=== PATIENT | female | born 1940 | race Caucasian/White ===

== ENCOUNTER 2017-11-21 16:26 | Inpatient (IN) ==
[2017-11-21 17:53] LABS: Basophils % 0.3 % (0.0-0.8); Eosinophils % 0.2 % (0.00-10.9); Hematocrit 31.4 VOL% (35.7-47.0); Hemoglobin 10.5 GM/DL (12.0-16.0); Immature Granulocytes % 0.5 %; Immature Granulocytes Absolute 0.05 #; Lymphocytes # 1.8 10*3/uL (1.4-4.0); Lymphocytes % 17.5 % (21.3-54.2); Mean Corpuscular HGB Conc 33.4 GM/DL (32-36); Mean Corpuscular Hemoglobin 32 PG (27-34); Mean Corpuscular Volume 94.9 FL (87-102); Mean Platelet Volume 13.1 FL (9.6-12.0); Monocytes # 0.7 10*3/uL (0.11-0.8); Monocytes % 6.5 % (1.7-12.7); NRBC # 0.06 10*3/uL; Neutrophils # 7.9 10*3/uL (1.4-7.4); Platelet Count 271 T/CUMM (130-400); Red Blood Count 3.31 MC/CUMM (3.8-5.5); Red Cell Distribution Width 13.7 % (9.3-17.3); White Blood Count 10.5 T/CUMM (4-12)
[2017-11-21 18:09] LABS: Alanine Aminotransferase 166 U/L (13-56); Albumin 2.5 G/DL (3.4-5.0); Alkaline Phosphatase 119 U/L (45-117); Amylase 25 U/L (25-115); Aspartate Amino Transferase 184 U/L (0-37); Blood Urea Nitrogen 62 MG/DL (7-18); Calcium 7.9 MG/DL (8.5-10.1); Glucose 216 MG/DL (74-106); Osmolality,Calculated 271.8 MOS/KG (273-304); Potassium 4.7 MMOL/L (3.5-5.1); Sodium 123 MMOL/L (136-145); Total Protein 6.8 G/DL (6.4-8.3)
[2017-11-21 18:22] LABS: Lactic Acid 2.2 MMOL/L (0.4-2.0)
[2017-11-21] MEDS ORDERED: SODIUM CHLORIDE 0.9% 2,000 ML IV STA (18:35)
[2017-11-21] MEDS ORDERED: ONDANSETRON 4 MG/2 ML VIAL ONE (19:10)
[2017-11-21] MEDS ORDERED: ONDANSETRON 4 MG/2 ML VIAL IV STA (19:11)
[2017-11-21 20:58] LABS: Amorphous Crystals,Urine Moderate /HPF (Few); Apearance,Urine Slightly Hazy (Clear); Bacteria,Urine Moderate /HPF (Few); Bilirubin,Urine Negative (Negative); Blood, Urine Small mg/dL (Negative); Glucose,Urine (UA) >=500 mg/dL (Negative); Ketones,Urine 5 mg/dL (Negative); Mucus,Urine Occasional /LPF (Occasional); Nitrite,Urine Negative (Negative); Protein,Urine >=500 MG/DL; RBC,Urine 2 /HPF (0-4); Squamous Epithelial Cell,Urine Occasional /HPF (0-10); Urine Color Yellow (Yellow); Urine Specific Gravity 1.011 (1.001-1.035); Urine Urobilinogen < 2.0 EU/DL (0.2-1.0); WBC,Urine 2 /HPF (0-6)
[2017-11-21] MEDS ORDERED: ALBUTEROL 2.5 MG/3 ML NEB RESP TX PRN (21:03)
[2017-11-21] MEDS ORDERED: ALBUTEROL/IPRATROPIUM 3 ML NEB RESP TX PRN (21:03)
[2017-11-21] MEDS ORDERED: DEXTROSE 50% 25 GM/50 ML VIAL IV PRN (21:03)
[2017-11-21] MEDS ORDERED: GLUCAGON 1 MG VIAL IM PRN (21:03)
[2017-11-21] MEDS: ASPIRIN EC 81 MG TABLET PO SCH (21:39)
[2017-11-21] MEDS: INSULIN GLARGINE 100 UNIT/ML SUBCUT SCH (21:40)
[2017-11-21] MEDS: METOPROLOL TARTRATE 25 MG TABLET PO SCH (21:40)
[2017-11-21] MEDS: ENOXAPARIN 60 MG/0.6 ML SYRINGE SUBCUT SCH (21:41)
[2017-11-21] MEDS: SODIUM CHLORIDE 0.9% 1,000 ML IV SCH (21:43)
[2017-11-21] MEDS: TIMOLOL 0.5% OPH SOLN 5 ML BOTTLE LEFT EYE SCH (21:44)
[2017-11-21] MEDS: LATANOPROST 0.005% OPH SOLN 2.5 ML BOTTLE LEFT EYE SCH (21:44)
[2017-11-21] MEDS: INSULIN LISPRO 100 UNIT/ML SUBCUT SCH (21:45)
[2017-11-21] MEDS: BRIMONIDINE 0.2% OPH SOLN 5 ML BOTTLE LEFT EYE SCH (21:45)
[2017-11-21] MEDS ORDERED: NITROGLYCERIN SL 0.4 MG TABLET SL PRN (21:46)
[2017-11-21 22:55] LABS: INR 1.3; PT Patient Result 13.2 SECS
[2017-11-22] MEDS: ONDANSETRON 4 MG/2 ML VIAL IV PRN (03:30)
[2017-11-22 05:22] LABS: Basophils % 0.3 % (0.0-0.8); Eosinophils % 0.1 % (0.00-10.9); Hematocrit 30.6 VOL% (35.7-47.0); Hemoglobin 9.9 GM/DL (12.0-16.0); Immature Granulocytes % 0.5 %; Immature Granulocytes Absolute 0.05 #; Lymphocytes # 1.5 10*3/uL (1.4-4.0); Lymphocytes % 15.6 % (21.3-54.2); Mean Corpuscular HGB Conc 32.4 GM/DL (32-36); Mean Corpuscular Hemoglobin 31 PG (27-34); Mean Corpuscular Volume 95.3 FL (87-102); Mean Platelet Volume 13.4 FL (9.6-12.0); Monocytes # 0.7 10*3/uL (0.11-0.8); Monocytes % 7.2 % (1.7-12.7); NRBC # 0.05 10*3/uL; Neutrophils # 7.3 10*3/uL (1.4-7.4); Neutrophils % 76.3 % (38.7-73.9); Platelet Count 230 T/CUMM (130-400); Red Blood Count 3.21 MC/CUMM (3.8-5.5); Red Cell Distribution Width 13.6 % (9.3-17.3); White Blood Count 9.6 T/CUMM (4-12)
[2017-11-22 05:38] LABS: Albumin 2.3 G/DL (3.4-5.0); Bilirubin,Total 0.8 MG/DL (0.2-1.0); Calcium 7.7 MG/DL (8.5-10.1); Osmolality,Calculated 273.4 MOS/KG (273-304); Potassium 4.7 MMOL/L (3.5-5.1); Risk Ratio 3.62; Thyroid Stimulating Hormone 1.6 uIU/ml (0.358-3.74); Total Protein 6.1 G/DL (6.4-8.3)
[2017-11-22] MEDS: PROMETHAZINE 25 MG/1 ML VIAL IM PRN (07:17)
[2017-11-22] MEDS: METOPROLOL TARTRATE 25 MG TABLET PO SCH ×2 (08:06→20:21)
[2017-11-22] MEDS: BRIMONIDINE 0.2% OPH SOLN 5 ML BOTTLE LEFT EYE SCH ×2 (08:07→20:23)
[2017-11-22] MEDS: TIMOLOL 0.5% OPH SOLN 5 ML BOTTLE LEFT EYE SCH ×2 (08:07→20:23)
[2017-11-22] MEDS: INSULIN LISPRO 100 UNIT/ML SUBCUT SCH ×4 (08:14→20:20)
[2017-11-22] MEDS: SODIUM BICARB INJ 150 MEQ in STERILE WATER INJ 850 ML IV SCH ×2 (10:01→20:20)
[2017-11-22 11:20] LABS: Hepatitis A Ab IgM Quant 0.28 Index; Hepatitis A Ab IgM Result Negative (Negative); Hepatitis B Core IgM Quant 0.35 Index; Hepatitis B Core IgM Result Negative (Negative); Hepatitis B Surface Ag Quant 0.71 Index; Hepatitis B Surface Ag Result Negative (Negative); Hepatitis C Virus Ab Quant < 0.02 Index; Hepatitis C Virus Ab Result Negative (Negative)
[2017-11-22 11:33] LABS: Lactic Acid 3.4 MMOL/L (0.4-2.0)
[2017-11-22] MEDS: DIGOXIN 0.125 MG TABLET PO SCH (13:32)
[2017-11-22] MEDS: ENOXAPARIN 60 MG/0.6 ML SYRINGE SUBCUT SCH (20:20)
[2017-11-22] MEDS: ASPIRIN EC 81 MG TABLET PO SCH (20:21)
[2017-11-22] MEDS: INSULIN GLARGINE 100 UNIT/ML SUBCUT SCH (20:21)
[2017-11-22] MEDS: LATANOPROST 0.005% OPH SOLN 2.5 ML BOTTLE LEFT EYE SCH (20:24)
[2017-11-22 22:08] LABS: Collection Time,Urine 12 HOURS; Total Protein 12 Hr Ur Result 546 MG/12HR (0-75)
[2017-11-23 04:46] LABS: Basophils % 0.3 % (0.0-0.8); Eosinophils # 0.1 10*3/uL (0.0-0.87); Eosinophils % 0.7 % (0.00-10.9); Hematocrit 29.4 VOL% (35.7-47.0); Hemoglobin 9.9 GM/DL (12.0-16.0); Immature Granulocytes % 0.5 %; Immature Granulocytes Absolute 0.05 #; Lymphocytes # 2.3 10*3/uL (1.4-4.0); Lymphocytes % 21.2 % (21.3-54.2); Mean Corpuscular HGB Conc 33.7 GM/DL (32-36); Mean Corpuscular Hemoglobin 32 PG (27-34); Mean Corpuscular Volume 93.9 FL (87-102); Monocytes # 1.1 10*3/uL (0.11-0.8); Monocytes % 10.4 % (1.7-12.7); NRBC # 0.12 10*3/uL; Neutrophils # 7.1 10*3/uL (1.4-7.4); Neutrophils % 66.9 % (38.7-73.9); Platelet Count 254 T/CUMM (130-400); Red Blood Count 3.13 MC/CUMM (3.8-5.5); Red Cell Distribution Width 13.9 % (9.3-17.3); White Blood Count 10.7 T/CUMM (4-12)
[2017-11-23 05:12] LABS: Calcium 7.3 MG/DL (8.5-10.1); Osmolality,Calculated 274.1 MOS/KG (273-304); Potassium 3.9 MMOL/L (3.5-5.1)
[2017-11-23] MEDS: SODIUM BICARB INJ 150 MEQ in STERILE WATER INJ 850 ML IV SCH ×2 (06:27→14:23)
[2017-11-23] MEDS ORDERED: METOPROLOL TARTRATE 50 MG TABLET PO SCH (08:00)
[2017-11-23] MEDS ORDERED: METOPROLOL TARTRATE 50 MG TABLET ONE (08:02)
[2017-11-23] MEDS: cefTRIAXone 1,000 MG in SYRINGE 1 EACH IV SCH (08:03)
[2017-11-23] MEDS: BRIMONIDINE 0.2% OPH SOLN 5 ML BOTTLE LEFT EYE SCH ×2 (08:04→20:23)
[2017-11-23] MEDS: INSULIN LISPRO 100 UNIT/ML SUBCUT SCH ×4 (08:04→20:22)
[2017-11-23] MEDS: TIMOLOL 0.5% OPH SOLN 5 ML BOTTLE LEFT EYE SCH ×2 (08:04→20:23)
[2017-11-23] MEDS: DIGOXIN 0.125 MG TABLET PO SCH (13:11)
[2017-11-23] MEDS: ONDANSETRON 4 MG/2 ML VIAL IV PRN (14:24)
[2017-11-23] MEDS: ENOXAPARIN 60 MG/0.6 ML SYRINGE SUBCUT SCH (20:22)
[2017-11-23] MEDS: INSULIN GLARGINE 100 UNIT/ML SUBCUT SCH (20:22)
[2017-11-23] MEDS: ASPIRIN EC 81 MG TABLET PO SCH (20:22)
[2017-11-23] MEDS: LATANOPROST 0.005% OPH SOLN 2.5 ML BOTTLE LEFT EYE SCH (20:23)
[2017-11-23] MEDS: SODIUM CHLORIDE 0.9% 1,000 ML IV SCH (20:55)
[2017-11-24] MEDS: SODIUM BICARB INJ 150 MEQ in STERILE WATER INJ 850 ML IV SCH (02:35)
[2017-11-24 06:04] LABS: Lactic Acid 2.2 MMOL/L (0.4-2.0)
[2017-11-24 06:12] LABS: Calcium 7.5 MG/DL (8.5-10.1); Osmolality,Calculated 265.5 MOS/KG (273-304); Potassium 3.4 MMOL/L (3.5-5.1)
[2017-11-24 07:04] LABS: Albumin 2.1 G/DL (3.4-5.0); Bilirubin,Total 0.4 MG/DL (0.2-1.0); Calcium 7.5 MG/DL (8.5-10.1); Osmolality,Calculated 265.5 MOS/KG (273-304); Potassium 3.6 MMOL/L (3.5-5.1); Total Protein 5.8 G/DL (6.4-8.3)
[2017-11-24] MEDS: INSULIN LISPRO 100 UNIT/ML SUBCUT SCH ×4 (07:33→20:12)
[2017-11-24] MEDS ORDERED: SODIUM BICARB INJ 150 MEQ in DEXTROSE 5% 850 ML IV SCH (08:00)
[2017-11-24] MEDS: METOPROLOL TARTRATE 50 MG TABLET PO SCH ×2 (09:05→20:17)
[2017-11-24] MEDS: TIMOLOL 0.5% OPH SOLN 5 ML BOTTLE LEFT EYE SCH ×2 (09:07→20:10)
[2017-11-24] MEDS: cefTRIAXone 1,000 MG in SYRINGE 1 EACH IV SCH (09:08)
[2017-11-24] MEDS: BRIMONIDINE 0.2% OPH SOLN 5 ML BOTTLE LEFT EYE SCH ×2 (09:08→20:10)
[2017-11-24] MEDS ORDERED: SODIUM CHLOR 0.9% KCL 20 MEQ 20 MEQ/1,000 ML BAG IV SCH (10:30)
[2017-11-24] MEDS: DEXT 5% NACL 0.9% KCL 20 MEQ 20 MEQ/1,000 ML BAG IV SCH (11:13)
[2017-11-24 12:02] LABS: INR 1.2; PT Patient Result 12.7 SECS
[2017-11-24] MEDS: DIGOXIN 0.125 MG TABLET PO SCH (12:19)
[2017-11-24] MEDS: ONDANSETRON 4 MG/2 ML VIAL IV PRN (13:29)
[2017-11-24 14:07] LABS: ABG Base Excess -0.9 MMOL/L (-2.5-2.5); ABG HCO3 22.2 MMOL/L (20-26); ABG Oxygen Saturation 98.5 % (95-100); ABG PCO2 31.2 MM HG (35-48); ABG PO2 142.5 MM HG (80-95); ABG TCO2 23.2 MMOL/L (23-27)
[2017-11-24 14:13] LABS: Basophils % 0.3 % (0.0-0.8); Eosinophils # 0.1 10*3/uL (0.0-0.87); Eosinophils % 1.1 % (0.00-10.9); Hematocrit 30.9 VOL% (35.7-47.0); Hemoglobin 10.2 GM/DL (12.0-16.0); Immature Granulocytes % 0.9 %; Lymphocytes # 2.3 10*3/uL (1.4-4.0); Lymphocytes % 20.8 % (21.3-54.2); Mean Corpuscular Hemoglobin 32 PG (27-34); Mean Corpuscular Volume 96.3 FL (87-102); Mean Platelet Volume 12.8 FL (9.6-12.0); Monocytes # 1.1 10*3/uL (0.11-0.8); Monocytes % 9.9 % (1.7-12.7); NRBC # 0.18 10*3/uL; Neutrophils # 7.6 10*3/uL (1.4-7.4); Platelet Count 239 T/CUMM (130-400); Red Blood Count 3.21 MC/CUMM (3.8-5.5); Red Cell Distribution Width 14.8 % (9.3-17.3); White Blood Count 11.3 T/CUMM (4-12)
[2017-11-24 14:37] LABS: Calcium 7.2 MG/DL (8.5-10.1); Osmolality,Calculated 268.6 MOS/KG (273-304)
[2017-11-24] MEDS: ENOXAPARIN 60 MG/0.6 ML SYRINGE SUBCUT SCH (20:11)
[2017-11-24] MEDS: LATANOPROST 0.005% OPH SOLN 2.5 ML BOTTLE LEFT EYE SCH (20:11)
[2017-11-24] MEDS: ASPIRIN EC 81 MG TABLET PO SCH (20:11)
[2017-11-25] MEDS: DEXT 5% NACL 0.9% KCL 20 MEQ 20 MEQ/1,000 ML BAG IV SCH (02:14)
[2017-11-25] MEDS: ONDANSETRON 4 MG/2 ML VIAL IV PRN ×5 (05:04→23:03)
[2017-11-25 05:20] LABS: Basophils % 0.3 % (0.0-0.8); Eosinophils # 0.1 10*3/uL (0.0-0.87); Eosinophils % 1.2 % (0.00-10.9); Hematocrit 30.8 VOL% (35.7-47.0); Hemoglobin 10.1 GM/DL (12.0-16.0); Immature Granulocytes % 0.7 %; Immature Granulocytes Absolute 0.07 #; Lymphocytes # 2.4 10*3/uL (1.4-4.0); Lymphocytes % 22.3 % (21.3-54.2); Mean Corpuscular HGB Conc 32.8 GM/DL (32-36); Mean Corpuscular Hemoglobin 32 PG (27-34); Mean Platelet Volume 12.9 FL (9.6-12.0); Monocytes # 1.1 10*3/uL (0.11-0.8); Monocytes % 10.6 % (1.7-12.7); NRBC # 0.22 10*3/uL; Neutrophils # 6.9 10*3/uL (1.4-7.4); Neutrophils % 64.9 % (38.7-73.9); Platelet Count 224 T/CUMM (130-400); Red Blood Count 3.21 MC/CUMM (3.8-5.5); Red Cell Distribution Width 14.8 % (9.3-17.3); White Blood Count 10.6 T/CUMM (4-12)
[2017-11-25 05:36] LABS: Calcium 7.4 MG/DL (8.5-10.1); Osmolality,Calculated 265.5 MOS/KG (273-304); Potassium 4.1 MMOL/L (3.5-5.1)
[2017-11-25] MEDS: INSULIN LISPRO 100 UNIT/ML SUBCUT SCH ×4 (08:00→20:07)
[2017-11-25] MEDS: BRIMONIDINE 0.2% OPH SOLN 5 ML BOTTLE LEFT EYE SCH ×2 (09:26→20:07)
[2017-11-25] MEDS: METOPROLOL TARTRATE 25 MG TABLET PO SCH ×2 (09:26→20:08)
[2017-11-25] MEDS: cefTRIAXone 1,000 MG in SYRINGE 1 EACH IV SCH (09:27)
[2017-11-25] MEDS: TIMOLOL 0.5% OPH SOLN 5 ML BOTTLE LEFT EYE SCH ×2 (09:29→20:08)
[2017-11-25 09:39] LABS: Lactic Acid 3.9 MMOL/L (0.4-2.0)
[2017-11-25 11:00] LABS: Albumin (UPER) 329.1 MG/DL; Albumin (UPER) Rel% 75.3 %; Alpha 1 (UPER) Rel% 4.8 %; Alpha 2 (UPER) 22.7 MG/DL; Alpha 2 (UPER) Rel % 5.2 %; Beta (UPER) 37.2 MG/DL; Beta (UPER) Rel % 8.5 %; Gamma (UPER) 27.1 MG/DL; Gamma (UPER) Rel % 6.2 %
[2017-11-25] MEDS: POTASSIUM CHLORIDE INJ 10 MEQ in DEXTROSE 5% NACL 0.9% 1,000 ML IV SCH (14:16)
[2017-11-25] MEDS: DIGOXIN 0.125 MG TABLET PO SCH (14:16)
[2017-11-25] MEDS ORDERED: DIGOXIN 0.125 MG TABLET PO ONE (14:28)
[2017-11-25] MEDS: ENOXAPARIN 60 MG/0.6 ML SYRINGE SUBCUT SCH (20:07)
[2017-11-25] MEDS: ASPIRIN EC 81 MG TABLET PO SCH (20:08)
[2017-11-25] MEDS: LATANOPROST 0.005% OPH SOLN 2.5 ML BOTTLE LEFT EYE SCH (20:08)
[2017-11-26] MEDS: ONDANSETRON 4 MG/2 ML VIAL IV PRN ×2 (02:52→08:13)
[2017-11-26] MEDS: PROMETHAZINE 25 MG/1 ML VIAL IM PRN (03:35)
[2017-11-26] MEDS ORDERED: DOBUTamine 500 MG/250 ML PREMIX IV ONE (06:57)
[2017-11-26] MEDS: DOBUTamine 500 MG/250 ML PREMIX IV PRN ×2 (06:57→14:30)
[2017-11-26] MEDS ORDERED: CALCIUM CHLORIDE 1,000 MG/10 ML SYRINGE IV ONE ×2 (07:00→08:58)
[2017-11-26] MEDS ORDERED: SODIUM CHLORIDE 0.9% 1,000 ML IV PRN (07:12)
[2017-11-26 07:26] LABS: Basophils % 0.2 % (0.0-0.8); Eosinophils % 0.1 % (0.00-10.9); Hematocrit 31.2 VOL% (35.7-47.0); Immature Granulocytes % 0.8 %; Immature Granulocytes Absolute 0.09 #; Lymphocytes # 1.5 10*3/uL (1.4-4.0); Lymphocytes % 13.6 % (21.3-54.2); Mean Corpuscular HGB Conc 32.1 GM/DL (32-36); Mean Corpuscular Hemoglobin 32 PG (27-34); Mean Corpuscular Volume 99.4 FL (87-102); Mean Platelet Volume 12.6 FL (9.6-12.0); NRBC # 0.32 10*3/uL; Neutrophils # 8.5 10*3/uL (1.4-7.4); Neutrophils % 76.3 % (38.7-73.9); Platelet Count 226 T/CUMM (130-400); Red Blood Count 3.14 MC/CUMM (3.8-5.5); Red Cell Distribution Width 15.4 % (9.3-17.3); White Blood Count 11.2 T/CUMM (4-12)
[2017-11-26 07:29] LABS: Calcium 8.9 MG/DL (8.5-10.1); Osmolality,Calculated 275.4 MOS/KG (273-304); Potassium 5.3 MMOL/L (3.5-5.1)
[2017-11-26 07:58] LABS: Bilirubin,Direct 0.3 MG/DL (0.0-0.20); Bilirubin,Indirect 0.3 MG/DL (0.0-1.0); Bilirubin,Total 0.6 MG/DL (0.2-1.0); Total Protein 5.4 G/DL (6.4-8.3)
[2017-11-26 08:02] LABS: Lactic Acid 6.8 MMOL/L (0.4-2.0)
[2017-11-26 08:16] LABS: Risk Ratio 3.91; VLDL CHOLESTEROL 18.6 MG/DL
[2017-11-26] MEDS: METOPROLOL TARTRATE 25 MG TABLET PO SCH (09:01)
[2017-11-26] MEDS: cefTRIAXone 1,000 MG in SYRINGE 1 EACH IV SCH (09:02)
[2017-11-26] MEDS: TIMOLOL 0.5% OPH SOLN 5 ML BOTTLE LEFT EYE SCH ×2 (09:20→20:52)
[2017-11-26] MEDS: INSULIN LISPRO 100 UNIT/ML SUBCUT SCH ×4 (10:35→20:51)
[2017-11-26] MEDS: POTASSIUM CHLORIDE INJ 10 MEQ in DEXTROSE 5% NACL 0.9% 1,000 ML IV SCH (10:40)
[2017-11-26] MEDS ORDERED: PROMETHAZINE 25 MG/1 ML VIAL IV PRN (11:34)
[2017-11-26] MEDS: SODIUM BICARB INJ 100 MEQ in DEXTROSE 5% NACL 0.45% 900 ML IV SCH ×2 (11:51→23:55)
[2017-11-26] MEDS: BRIMONIDINE 0.2% OPH SOLN 5 ML BOTTLE LEFT EYE SCH ×2 (11:56→20:51)
[2017-11-26] MEDS ORDERED: PROPOFOL 1,000 MG/100 ML BOTTLE IV ONE ×2 (12:13→23:51)
[2017-11-26] MEDS ORDERED: MIDAZOLAM 10 MG/2 ML VIAL ONE (12:14)
[2017-11-26] MEDS ORDERED: PHENYLEPHRINE DRIP 0 MG/0 ML PREMIX IV ONE (12:14)
[2017-11-26] MEDS ORDERED: SUCCINYLCHOLINE 200 MG/10 ML VIAL ONE (12:21)
[2017-11-26] MEDS ORDERED: MIDAZOLAM 2 MG/2 ML VIAL IV ONE (12:22)
[2017-11-26] MEDS ORDERED: SUCCINYLCHOLINE 200 MG/10 ML VIAL IV ONE (12:23)
[2017-11-26 13:12] LABS: ABG Base Excess -7.7 MMOL/L (-2.5-2.5); ABG HCO3 15.1 MMOL/L (20-26); ABG Oxygen Saturation 99.7 % (95-100); ABG PCO2 23.7 MM HG (35-48); ABG PH 7.422 (7.35-7.45); ABG PO2 425.9 MM HG (80-95); ABG TCO2 15.8 MMOL/L (23-27)
[2017-11-26] MEDS: DIGOXIN 0.125 MG TABLET PO SCH (13:50)
[2017-11-26 17:27] LABS: Calcium 7.7 MG/DL (8.5-10.1); Osmolality,Calculated 272.6 MOS/KG (273-304); Potassium 4.7 MMOL/L (3.5-5.1)
[2017-11-26 17:44] LABS: Lactic Acid 6.3 MMOL/L (0.4-2.0)
[2017-11-26] MEDS: ASPIRIN EC 81 MG TABLET PO SCH (20:51)
[2017-11-26] MEDS: ENOXAPARIN 60 MG/0.6 ML SYRINGE SUBCUT SCH (20:51)
[2017-11-26] MEDS: LATANOPROST 0.005% OPH SOLN 2.5 ML BOTTLE LEFT EYE SCH (20:52)
[2017-11-26] MEDS ORDERED: METOPROLOL TARTRATE 25 MG TABLET PO SCH (21:00)
[2017-11-27] MEDS: PROPOFOL 1,000 MG/100 ML BOTTLE IV SCH ×4 (00:01→23:06)
[2017-11-27 03:52] LABS: ABG HCO3 25.3 MMOL/L (20-26); ABG PCO2 22.7 MM HG (35-48); ABG PH 7.581 (7.35-7.45); ABG TCO2 18.6 MMOL/L (23-27)
[2017-11-27 03:53] LABS: Basophils % 0.2 % (0.0-0.8); Eosinophils % 0.1 % (0.00-10.9); Hematocrit 34.5 VOL% (35.7-47.0); Immature Granulocytes % 0.5 %; Immature Granulocytes Absolute 0.06 #; Lymphocytes # 0.8 10*3/uL (1.4-4.0); Lymphocytes % 7.1 % (21.3-54.2); Mean Corpuscular HGB Conc 35.4 GM/DL (32-36); Mean Corpuscular Hemoglobin 31 PG (27-34); Mean Corpuscular Volume 87.8 FL (87-102); Mean Platelet Volume 13.1 FL (9.6-12.0); Monocytes # 0.8 10*3/uL (0.11-0.8); Monocytes % 6.5 % (1.7-12.7); Neutrophils # 10.1 10*3/uL (1.4-7.4); Neutrophils % 85.6 % (38.7-73.9); Platelet Count 144 T/CUMM (130-400); Red Blood Count 3.93 MC/CUMM (3.8-5.5); Red Cell Distribution Width 16.5 % (9.3-17.3); White Blood Count 11.8 T/CUMM (4-12)
[2017-11-27 03:54] LABS: Hemoglobin 12.2 GM/DL (12.0-16.0)
[2017-11-27 04:18] LABS: Calcium 7.6 MG/DL (8.5-10.1); Osmolality,Calculated 281.5 MOS/KG (273-304); Potassium 4.1 MMOL/L (3.5-5.1)
[2017-11-27] MEDS: DOBUTamine 500 MG/250 ML PREMIX IV PRN ×2 (06:25→23:26)
[2017-11-27] MEDS: cefTRIAXone 1,000 MG in SYRINGE 1 EACH IV SCH (08:22)
[2017-11-27] MEDS: DIGOXIN 0.5 MG/2 ML AMP IV SCH (08:22)
[2017-11-27] MEDS: METOPROLOL TARTRATE 25 MG TABLET PO SCH ×5 (08:23→21:20)
[2017-11-27] MEDS: INSULIN LISPRO 100 UNIT/ML SUBCUT SCH ×4 (08:24→18:20)
[2017-11-27] MEDS: BRIMONIDINE 0.2% OPH SOLN 5 ML BOTTLE LEFT EYE SCH ×2 (08:37→21:22)
[2017-11-27] MEDS: TIMOLOL 0.5% OPH SOLN 5 ML BOTTLE LEFT EYE SCH ×2 (08:37→21:20)
[2017-11-27] MEDS ORDERED: ENOXAPARIN 30 MG/0.3 ML SYRINGE SUBCUT SCH (09:00)
[2017-11-27] MEDS: SODIUM BICARB INJ 100 MEQ in DEXTROSE 5% NACL 0.45% 900 ML IV SCH (12:40)
[2017-11-27 12:55] LABS: Smooth Muscle Antibody Negative (Negative)
[2017-11-27 14:05] LABS: Mitochondrial Antibody (M2) <0.1 U
[2017-11-27] MEDS: ENOXAPARIN 60 MG/0.6 ML SYRINGE SUBCUT SCH (21:19)
[2017-11-27] MEDS: ASPIRIN EC 81 MG TABLET PO SCH (21:19)
[2017-11-27] MEDS: LATANOPROST 0.005% OPH SOLN 2.5 ML BOTTLE LEFT EYE SCH (21:20)
[2017-11-28] MEDS: INSULIN LISPRO 100 UNIT/ML SUBCUT SCH ×4 (00:45→18:37)
[2017-11-28] MEDS: SODIUM BICARB INJ 100 MEQ in DEXTROSE 5% NACL 0.45% 900 ML IV SCH (01:59)
[2017-11-28 03:51] LABS: ABG Base Excess 4.2 MMOL/L (-2.5-2.5); ABG HCO3 24.1 MMOL/L (20-26); ABG Oxygen Saturation 98.4 % (95-100); ABG PCO2 23.8 MM HG (35-48); ABG PO2 122.1 MM HG (80-95); ABG TCO2 24.8 MMOL/L (23-27)
[2017-11-28 03:52] LABS: ABG PH 7.623 (7.35-7.45)
[2017-11-28 04:01] LABS: Basophils % 0.1 % (0.0-0.8); Eosinophils # 0.1 10*3/uL (0.0-0.87); Eosinophils % 0.9 % (0.00-10.9); Hematocrit 34.4 VOL% (35.7-47.0); Hemoglobin 12.2 GM/DL (12.0-16.0); Immature Granulocytes % 0.5 %; Immature Granulocytes Absolute 0.05 #; Lymphocytes # 1.3 10*3/uL (1.4-4.0); Lymphocytes % 12.9 % (21.3-54.2); Mean Corpuscular HGB Conc 35.5 GM/DL (32-36); Mean Corpuscular Hemoglobin 31 PG (27-34); Mean Platelet Volume 12.9 FL (9.6-12.0); Monocytes # 0.5 10*3/uL (0.11-0.8); NRBC # 0.23 10*3/uL; Neutrophils # 8.2 10*3/uL (1.4-7.4); Neutrophils % 80.6 % (38.7-73.9); Platelet Count 131 T/CUMM (130-400); Red Blood Count 3.91 MC/CUMM (3.8-5.5); Red Cell Distribution Width 16.8 % (9.3-17.3); White Blood Count 10.2 T/CUMM (4-12)
[2017-11-28 04:42] LABS: Albumin 1.7 G/DL (3.4-5.0); Bilirubin,Total 0.8 MG/DL (0.2-1.0); Calcium 7.4 MG/DL (8.5-10.1); Osmolality,Calculated 283.1 MOS/KG (273-304); Potassium 3.4 MMOL/L (3.5-5.1); Prealbumin 8.9 MG/DL (20-40); Total Protein 4.5 G/DL (6.4-8.3)
[2017-11-28] MEDS: PROPOFOL 1,000 MG/100 ML BOTTLE IV SCH ×3 (06:34→23:59)
[2017-11-28] MEDS ORDERED: MAGNESIUM SULF RIDER 2 GM in PREMIX 1 EACH IV PRN (07:01)
[2017-11-28] MEDS ORDERED: FUROSEMIDE 40 MG/4 ML VIAL IV ONE (07:01)
[2017-11-28] MEDS ORDERED: ALBUMIN 25% 25 GM in PREMIX 1 EACH IV ONE (07:01)
[2017-11-28] MEDS: DIGOXIN 0.5 MG/2 ML AMP IV SCH (08:13)
[2017-11-28] MEDS: cefTRIAXone 1,000 MG in SYRINGE 1 EACH IV SCH (08:13)
[2017-11-28] MEDS: METOPROLOL TARTRATE 25 MG TABLET PO SCH ×4 (08:18→21:13)
[2017-11-28] MEDS: POTASSIUM CHLORIDE 20 MEQ/15 ML UDCUP PER TUBE PRN (08:21)
[2017-11-28] MEDS: TIMOLOL 0.5% OPH SOLN 5 ML BOTTLE LEFT EYE SCH ×2 (08:21→21:14)
[2017-11-28] MEDS: MULTIVITAMIN LIQUID (CENTRUM) 60 ML BOTTLE PO SCH (08:30)
[2017-11-28] MEDS: BRIMONIDINE 0.2% OPH SOLN 5 ML BOTTLE LEFT EYE SCH ×2 (10:56→21:14)
[2017-11-28] MEDS: ENOXAPARIN 60 MG/0.6 ML SYRINGE SUBCUT SCH (21:13)
[2017-11-28] MEDS: ASPIRIN EC 81 MG TABLET PO SCH (21:13)
[2017-11-28] MEDS: LATANOPROST 0.005% OPH SOLN 2.5 ML BOTTLE LEFT EYE SCH (21:14)
[2017-11-28] MEDS: DOBUTamine 500 MG/250 ML PREMIX IV PRN (23:17)
[2017-11-29] MEDS: INSULIN LISPRO 100 UNIT/ML SUBCUT SCH ×4 (00:19→18:44)
[2017-11-29] MEDS: PROPOFOL 1,000 MG/100 ML BOTTLE IV SCH ×2 (02:30→15:13)
[2017-11-29 03:50] LABS: ABG Base Excess 5.2 MMOL/L (-2.5-2.5); ABG HCO3 29.2 MMOL/L (20-26); ABG Oxygen Saturation 99.6 % (95-100); ABG PCO2 32.4 MM HG (35-48); ABG PH 7.537 (7.35-7.45); ABG TCO2 23.9 MMOL/L (23-27)
[2017-11-29 03:58] LABS: Basophils % 0.2 % (0.0-0.8); Eosinophils # 0.2 10*3/uL (0.0-0.87); Eosinophils % 1.1 % (0.00-10.9); Hematocrit 37.5 VOL% (35.7-47.0); Hemoglobin 12.7 GM/DL (12.0-16.0); Immature Granulocytes % 0.7 %; Immature Granulocytes Absolute 0.11 #; Lymphocytes # 1.1 10*3/uL (1.4-4.0); Lymphocytes % 7.6 % (21.3-54.2); Mean Corpuscular HGB Conc 33.9 GM/DL (32-36); Mean Corpuscular Hemoglobin 32 PG (27-34); Mean Corpuscular Volume 93.1 FL (87-102); Monocytes # 0.6 10*3/uL (0.11-0.8); Monocytes % 4.1 % (1.7-12.7); NRBC # 0.18 10*3/uL; Neutrophils # 12.7 10*3/uL (1.4-7.4); Neutrophils % 86.3 % (38.7-73.9); Platelet Count 116 T/CUMM (130-400); Red Blood Count 4.03 MC/CUMM (3.8-5.5); Red Cell Distribution Width 16.5 % (9.3-17.3); White Blood Count 14.8 T/CUMM (4-12)
[2017-11-29 04:35] LABS: Albumin 2.1 G/DL (3.4-5.0); Bilirubin,Total 0.9 MG/DL (0.2-1.0); Calcium 7.7 MG/DL (8.5-10.1); Osmolality,Calculated 280.9 MOS/KG (273-304); Potassium 3.8 MMOL/L (3.5-5.1)
[2017-11-29] MEDS ORDERED: FUROSEMIDE 40 MG/4 ML VIAL IV ONE (05:35)
[2017-11-29] MEDS: METOPROLOL TARTRATE 25 MG TABLET PO SCH ×4 (08:02→20:02)
[2017-11-29] MEDS: cefTRIAXone 1,000 MG in SYRINGE 1 EACH IV SCH (08:02)
[2017-11-29] MEDS: POTASSIUM CHLORIDE 20 MEQ/15 ML UDCUP PER TUBE PRN (08:02)
[2017-11-29] MEDS: DIGOXIN 0.5 MG/2 ML AMP IV SCH (08:03)
[2017-11-29] MEDS: TIMOLOL 0.5% OPH SOLN 5 ML BOTTLE LEFT EYE SCH ×2 (08:06→20:03)
[2017-11-29] MEDS: MULTIVITAMIN LIQUID (CENTRUM) 60 ML BOTTLE PO SCH (08:08)
[2017-11-29] MEDS: BRIMONIDINE 0.2% OPH SOLN 5 ML BOTTLE LEFT EYE SCH ×2 (08:09→20:03)
[2017-11-29] MEDS: ENOXAPARIN 80 MG/0.8 ML SYRINGE SUBCUT SCH (11:34)
[2017-11-29] MEDS: ASPIRIN EC 81 MG TABLET PO SCH (20:02)
[2017-11-29] MEDS: LATANOPROST 0.005% OPH SOLN 2.5 ML BOTTLE LEFT EYE SCH (20:02)
[2017-11-30] MEDS: INSULIN LISPRO 100 UNIT/ML SUBCUT SCH ×4 (00:41→18:46)
[2017-11-30] MEDS: PROPOFOL 1,000 MG/100 ML BOTTLE IV SCH ×2 (03:22→17:58)
[2017-11-30 05:09] LABS: ABG Base Excess 4.3 MMOL/L (-2.5-2.5); ABG HCO3 26.8 MMOL/L (20-26); ABG Oxygen Saturation 99.4 % (95-100); ABG PCO2 33.4 MM HG (35-48); ABG PH 7.522 (7.35-7.45); ABG PO2 195.5 MM HG (80-95); ABG TCO2 27.8 MMOL/L (23-27)
[2017-11-30 05:52] LABS: Basophils % 0.2 % (0.0-0.8); Eosinophils # 0.1 10*3/uL (0.0-0.87); Eosinophils % 0.7 % (0.00-10.9); Hematocrit 36.4 VOL% (35.7-47.0); Hemoglobin 12.4 GM/DL (12.0-16.0); Immature Granulocytes Absolute 0.14 #; Lymphocytes # 1.1 10*3/uL (1.4-4.0); Lymphocytes % 8.1 % (21.3-54.2); Mean Corpuscular HGB Conc 34.1 GM/DL (32-36); Mean Corpuscular Hemoglobin 32 PG (27-34); Mean Corpuscular Volume 92.9 FL (87-102); Mean Platelet Volume 13.6 FL (9.6-12.0); Monocytes # 1.2 10*3/uL (0.11-0.8); Monocytes % 8.3 % (1.7-12.7); NRBC # 0.32 10*3/uL; Neutrophils # 11.4 10*3/uL (1.4-7.4); Neutrophils % 81.7 % (38.7-73.9); Red Blood Count 3.92 MC/CUMM (3.8-5.5); Red Cell Distribution Width 16.8 % (9.3-17.3)
[2017-11-30 06:01] LABS: Platelet Count 99 T/CUMM (130-400)
[2017-11-30 06:04] LABS: Bilirubin,Total 1.4 MG/DL (0.2-1.0); Calcium 7.3 MG/DL (8.5-10.1); Osmolality,Calculated 285.9 MOS/KG (273-304); Potassium 4.3 MMOL/L (3.5-5.1)
[2017-11-30 06:33] LABS: Hypochromasia Slight; Microcytosis 1+
[2017-11-30 06:34] LABS: Platelet Estimate Decreased; Polychromasia Slight
[2017-11-30] MEDS: cefTRIAXone 1,000 MG in SYRINGE 1 EACH IV SCH (08:25)
[2017-11-30] MEDS: MULTIVITAMIN LIQUID (CENTRUM) 60 ML BOTTLE PO SCH (08:27)
[2017-11-30] MEDS: DIGOXIN 0.5 MG/2 ML AMP IV SCH (08:28)
[2017-11-30] MEDS: METOPROLOL TARTRATE 25 MG TABLET PO SCH ×4 (08:28→21:13)
[2017-11-30] MEDS: ENOXAPARIN 80 MG/0.8 ML SYRINGE SUBCUT SCH (08:31)
[2017-11-30] MEDS: TIMOLOL 0.5% OPH SOLN 5 ML BOTTLE LEFT EYE SCH ×2 (08:33→21:13)
[2017-11-30] MEDS: BRIMONIDINE 0.2% OPH SOLN 5 ML BOTTLE LEFT EYE SCH ×2 (08:33→21:13)
[2017-11-30] MEDS: ISOSORBIDE MONONITRATE 30 MG TABLET PO SCH (12:07)
[2017-11-30] MEDS: hydrALAZINE 10 MG TABLET PO SCH ×2 (17:40→21:14)
[2017-11-30] MEDS: ASPIRIN EC 81 MG TABLET PO SCH (21:13)
[2017-11-30] MEDS: LATANOPROST 0.005% OPH SOLN 2.5 ML BOTTLE LEFT EYE SCH (21:14)
[2017-12-01] MEDS: INSULIN LISPRO 100 UNIT/ML SUBCUT SCH ×4 (00:03→18:05)
[2017-12-01 04:02] LABS: ABG Base Excess 4.7 MMOL/L (-2.5-2.5); ABG HCO3 28.6 MMOL/L (20-26); ABG PCO2 37.3 MM HG (35-48); ABG PH 7.486 (7.35-7.45); ABG TCO2 25.1 MMOL/L (23-27)
[2017-12-01 04:50] LABS: Albumin 1.9 G/DL (3.4-5.0); Bilirubin,Total 1.6 MG/DL (0.2-1.0); Calcium 7.5 MG/DL (8.5-10.1); Osmolality,Calculated 291.8 MOS/KG (273-304); Potassium 4.2 MMOL/L (3.5-5.1); Total Protein 5.1 G/DL (6.4-8.3)
[2017-12-01] MEDS: PROPOFOL 1,000 MG/100 ML BOTTLE IV SCH ×2 (05:08→19:00)
[2017-12-01 05:38] LABS: Calcium 7.7 MG/DL (8.5-10.1); Osmolality,Calculated 290.8 MOS/KG (273-304); Potassium 4.2 MMOL/L (3.5-5.1); Prealbumin 7.7 MG/DL (20-40)
[2017-12-01 07:34] LABS: Basophils % 0.3 % (0.0-0.8); Eosinophils # 0.2 10*3/uL (0.0-0.87); Eosinophils % 1.3 % (0.00-10.9); Hematocrit 35.8 VOL% (35.7-47.0); Immature Granulocytes % 0.8 %; Immature Granulocytes Absolute 0.11 #; Lymphocytes # 1.3 10*3/uL (1.4-4.0); Lymphocytes % 9.2 % (21.3-54.2); Mean Corpuscular HGB Conc 33.5 GM/DL (32-36); Mean Corpuscular Hemoglobin 31 PG (27-34); Mean Corpuscular Volume 93.2 FL (87-102); Mean Platelet Volume 13.5 FL (9.6-12.0); Monocytes # 1.4 10*3/uL (0.11-0.8); Monocytes % 10.1 % (1.7-12.7); NRBC # 0.17 10*3/uL; Neutrophils # 10.7 10*3/uL (1.4-7.4); Neutrophils % 78.3 % (38.7-73.9); Red Blood Count 3.84 MC/CUMM (3.8-5.5); Red Cell Distribution Width 16.3 % (9.3-17.3); White Blood Count 13.7 T/CUMM (4-12)
[2017-12-01 07:35] LABS: Platelet Count 77 T/CUMM (130-400)
[2017-12-01 07:40] LABS: INR 1.1; PT Patient Result 11.4 SECS
[2017-12-01] MEDS ORDERED: FONDAPARINUX 7.5 MG/0.6 ML SYRINGE SUBCUT SCH ×2 (08:00→08:09)
[2017-12-01] MEDS: DIGOXIN 0.5 MG/2 ML AMP IV SCH (08:02)
[2017-12-01] MEDS: cefTRIAXone 1,000 MG in SYRINGE 1 EACH IV SCH (08:02)
[2017-12-01] MEDS: TIMOLOL 0.5% OPH SOLN 5 ML BOTTLE LEFT EYE SCH ×2 (08:03→20:24)
[2017-12-01] MEDS: BRIMONIDINE 0.2% OPH SOLN 5 ML BOTTLE LEFT EYE SCH ×2 (08:03→20:25)
[2017-12-01] MEDS: hydrALAZINE 10 MG TABLET PO SCH ×3 (08:03→20:24)
[2017-12-01] MEDS: ISOSORBIDE MONONITRATE 30 MG TABLET PO SCH (08:03)
[2017-12-01] MEDS: METOPROLOL TARTRATE 25 MG TABLET PO SCH ×4 (08:03→20:24)
[2017-12-01] MEDS: MULTIVITAMIN LIQUID (CENTRUM) 60 ML BOTTLE PO SCH (08:03)
[2017-12-01] MEDS: APIXABAN 5 MG TABLET PER TUBE SCH ×2 (09:30→20:24)
[2017-12-01] MEDS: MORPHINE 4 MG/1 ML VIAL IV PRN (20:23)
[2017-12-01] MEDS: LATANOPROST 0.005% OPH SOLN 2.5 ML BOTTLE LEFT EYE SCH (20:23)
[2017-12-01] MEDS: ASPIRIN EC 81 MG TABLET PO SCH (20:24)
[2017-12-02] MEDS: INSULIN LISPRO 100 UNIT/ML SUBCUT SCH ×4 (00:20→18:13)
[2017-12-02] MEDS: PROPOFOL 1,000 MG/100 ML BOTTLE IV SCH ×2 (00:51→16:13)
[2017-12-02 03:39] LABS: ABG Base Excess 6.2 MMOL/L (-2.5-2.5); ABG HCO3 28.9 MMOL/L (20-26); ABG Oxygen Saturation 99.3 % (95-100); ABG PH 7.535 (7.35-7.45); ABG PO2 202.8 MM HG (80-95)
[2017-12-02 03:46] LABS: Basophils # 0.1 10*3/uL (0.0-0.2); Basophils % 0.4 % (0.0-0.8); Eosinophils # 0.2 10*3/uL (0.0-0.87); Eosinophils % 1.8 % (0.00-10.9); Hematocrit 34.2 VOL% (35.7-47.0); Hemoglobin 11.5 GM/DL (12.0-16.0); Immature Granulocytes Absolute 0.12 #; Lymphocytes # 1.3 10*3/uL (1.4-4.0); Lymphocytes % 11.1 % (21.3-54.2); Mean Corpuscular HGB Conc 33.6 GM/DL (32-36); Mean Corpuscular Hemoglobin 32 PG (27-34); Mean Corpuscular Volume 93.7 FL (87-102); Mean Platelet Volume 12.9 FL (9.6-12.0); Monocytes # 1.2 10*3/uL (0.11-0.8); Monocytes % 10.3 % (1.7-12.7); NRBC # 0.11 10*3/uL; Neutrophils % 75.4 % (38.7-73.9); Red Blood Count 3.65 MC/CUMM (3.8-5.5); White Blood Count 11.9 T/CUMM (4-12)
[2017-12-02 03:49] LABS: Platelet Count 75 T/CUMM (130-400)
[2017-12-02 04:14] LABS: Albumin 1.7 G/DL (3.4-5.0); Bilirubin,Total 0.8 MG/DL (0.2-1.0); Calcium 7.8 MG/DL (8.5-10.1); Osmolality,Calculated 293.7 MOS/KG (273-304); Potassium 4.6 MMOL/L (3.5-5.1)
[2017-12-02 04:59] LABS: Hypochromasia 1+; Platelet Estimate Decreased
[2017-12-02 05:00] LABS: Microcytosis Slight
[2017-12-02] MEDS ORDERED: FUROSEMIDE 40 MG/4 ML VIAL IV ONE (07:15)
[2017-12-02] MEDS: cefTRIAXone 1,000 MG in SYRINGE 1 EACH IV SCH (07:57)
[2017-12-02] MEDS: APIXABAN 5 MG TABLET PER TUBE SCH ×2 (08:02→20:13)
[2017-12-02] MEDS: DIGOXIN 0.5 MG/2 ML AMP IV SCH (08:02)
[2017-12-02] MEDS: ISOSORBIDE MONONITRATE 30 MG TABLET PO SCH (08:02)
[2017-12-02] MEDS: hydrALAZINE 10 MG TABLET PO SCH ×3 (08:02→20:13)
[2017-12-02] MEDS: METOPROLOL TARTRATE 25 MG TABLET PO SCH ×3 (08:03→20:13)
[2017-12-02] MEDS: TIMOLOL 0.5% OPH SOLN 5 ML BOTTLE LEFT EYE SCH ×2 (08:03→20:13)
[2017-12-02] MEDS: BRIMONIDINE 0.2% OPH SOLN 5 ML BOTTLE LEFT EYE SCH ×2 (08:03→20:13)
[2017-12-02] MEDS: MULTIVITAMIN LIQUID (CENTRUM) 60 ML BOTTLE PO SCH (08:03)
[2017-12-02] MEDS: MORPHINE 4 MG/1 ML VIAL IV PRN ×2 (12:57→20:40)
[2017-12-02] MEDS: LATANOPROST 0.005% OPH SOLN 2.5 ML BOTTLE LEFT EYE SCH (20:13)
[2017-12-02] MEDS: ASPIRIN EC 81 MG TABLET PO SCH (20:13)
[2017-12-03] MEDS: INSULIN LISPRO 100 UNIT/ML SUBCUT SCH ×4 (00:54→18:40)
[2017-12-03 04:08] LABS: ABG Base Excess 6.5 MMOL/L (-2.5-2.5); ABG HCO3 30.6 MMOL/L (20-26); ABG PCO2 41.8 MM HG (35-48); ABG PH 7.482 (7.35-7.45); ABG PO2 150.4 MM HG (80-95); ABG TCO2 31.9 MMOL/L (23-27)
[2017-12-03 04:41] LABS: Basophils # 0.1 10*3/uL (0.0-0.2); Basophils % 0.6 % (0.0-0.8); Eosinophils # 0.3 10*3/uL (0.0-0.87); Eosinophils % 2.5 % (0.00-10.9); Hematocrit 36.4 VOL% (35.7-47.0); Hemoglobin 11.9 GM/DL (12.0-16.0); Immature Granulocytes % 1.3 %; Immature Granulocytes Absolute 0.14 #; Lymphocytes # 1.1 10*3/uL (1.4-4.0); Lymphocytes % 9.8 % (21.3-54.2); Mean Corpuscular HGB Conc 32.7 GM/DL (32-36); Mean Corpuscular Hemoglobin 31 PG (27-34); Mean Corpuscular Volume 95.8 FL (87-102); Mean Platelet Volume 13.5 FL (9.6-12.0); Monocytes # 1.3 10*3/uL (0.11-0.8); Monocytes % 12.2 % (1.7-12.7); NRBC # 0.03 10*3/uL; Neutrophils # 8.1 10*3/uL (1.4-7.4); Neutrophils % 73.6 % (38.7-73.9); Red Cell Distribution Width 15.9 % (9.3-17.3)
[2017-12-03 04:48] LABS: Platelet Count 101 T/CUMM (130-400)
[2017-12-03 04:50] LABS: Osmolality,Calculated 295.7 MOS/KG (273-304); Potassium 4.8 MMOL/L (3.5-5.1)
[2017-12-03 05:04] LABS: Hypochromasia Slight; Platelet Estimate Decreased
[2017-12-03] MEDS ORDERED: FUROSEMIDE 40 MG/4 ML VIAL IV ONE (06:43)
[2017-12-03] MEDS: cefTRIAXone 1,000 MG in SYRINGE 1 EACH IV SCH (08:05)
[2017-12-03] MEDS: ISOSORBIDE MONONITRATE 30 MG TABLET PO SCH (09:00)
[2017-12-03] MEDS: TIMOLOL 0.5% OPH SOLN 5 ML BOTTLE LEFT EYE SCH ×2 (09:00→21:23)
[2017-12-03] MEDS: APIXABAN 5 MG TABLET PER TUBE SCH ×2 (09:00→21:22)
[2017-12-03] MEDS: hydrALAZINE 10 MG TABLET PO SCH ×3 (09:00→21:22)
[2017-12-03] MEDS: BRIMONIDINE 0.2% OPH SOLN 5 ML BOTTLE LEFT EYE SCH ×2 (09:00→21:23)
[2017-12-03] MEDS: METOPROLOL TARTRATE 25 MG TABLET PO SCH ×3 (09:00→21:22)
[2017-12-03] MEDS: MULTIVITAMIN LIQUID (CENTRUM) 60 ML BOTTLE PO SCH (09:00)
[2017-12-03] MEDS: MORPHINE 4 MG/1 ML VIAL IV PRN ×2 (10:15→18:40)
[2017-12-03] MEDS: ALBUTEROL 2.5 MG/3 ML NEB RESP TX SCH (14:49)
[2017-12-03] MEDS: LATANOPROST 0.005% OPH SOLN 2.5 ML BOTTLE LEFT EYE SCH (21:21)
[2017-12-03] MEDS: ASPIRIN EC 81 MG TABLET PO SCH (21:22)
[2017-12-04] MEDS: ALBUTEROL 2.5 MG/3 ML NEB RESP TX SCH ×3 (00:45→14:10)
[2017-12-04] MEDS: INSULIN LISPRO 100 UNIT/ML SUBCUT SCH ×3 (00:45→12:10)
[2017-12-04 05:33] LABS: Basophils # 0.1 10*3/uL (0.0-0.2); Basophils % 0.7 % (0.0-0.8); Eosinophils # 0.3 10*3/uL (0.0-0.87); Eosinophils % 2.6 % (0.00-10.9); Hematocrit 37.3 VOL% (35.7-47.0); Hemoglobin 11.7 GM/DL (12.0-16.0); Immature Granulocytes % 2.1 %; Immature Granulocytes Absolute 0.21 #; Lymphocytes # 1.2 10*3/uL (1.4-4.0); Lymphocytes % 12.1 % (21.3-54.2); Mean Corpuscular HGB Conc 31.4 GM/DL (32-36); Mean Corpuscular Hemoglobin 31 PG (27-34); Mean Corpuscular Volume 99.5 FL (87-102); Mean Platelet Volume 13.3 FL (9.6-12.0); Monocytes # 1.1 10*3/uL (0.11-0.8); Monocytes % 11.2 % (1.7-12.7); NRBC # 0.03 10*3/uL; Neutrophils # 7.3 10*3/uL (1.4-7.4); Neutrophils % 71.3 % (38.7-73.9); Platelet Count 107 T/CUMM (130-400); Red Blood Count 3.75 MC/CUMM (3.8-5.5); Red Cell Distribution Width 15.9 % (9.3-17.3); White Blood Count 10.2 T/CUMM (4-12)
[2017-12-04 06:07] LABS: Calcium 8.1 MG/DL (8.5-10.1); Osmolality,Calculated 303.5 MOS/KG (273-304); Potassium 4.9 MMOL/L (3.5-5.1)
[2017-12-04] MEDS: cefTRIAXone 1,000 MG in SYRINGE 1 EACH IV SCH (07:50)
[2017-12-04] MEDS: BRIMONIDINE 0.2% OPH SOLN 5 ML BOTTLE LEFT EYE SCH (08:00)
[2017-12-04] MEDS: TIMOLOL 0.5% OPH SOLN 5 ML BOTTLE LEFT EYE SCH (08:30)
[2017-12-04] MEDS: MULTIVITAMIN LIQUID (CENTRUM) 60 ML BOTTLE PO SCH (08:45)
[2017-12-04] MEDS: ISOSORBIDE MONONITRATE 30 MG TABLET PO SCH (08:45)
[2017-12-04] MEDS: APIXABAN 5 MG TABLET PER TUBE SCH (08:45)
[2017-12-04] MEDS: METOPROLOL TARTRATE 25 MG TABLET PO SCH (08:45)
[2017-12-04] MEDS: hydrALAZINE 10 MG TABLET PO SCH (08:45)
[2017-12-04 14:14] VITALS: BP 122/73
[2017-12-04] MEDS ORDERED: CEFUROXIME 250 MG TABLET PO SCH (21:00)
[2017-12-04] MEDS ORDERED: METOPROLOL TARTRATE 50 MG TABLET PO SCH (21:00)
== END 2017-12-04 14:45 | DRG 280 ==
LOC: EDUNIT# → EDBD → N.ED 16:26 → SUATTDRO 20:26 → N.EDINP 20:26 → N.ICU 20:56
PROVIDERS: ADMIT Internal Medicine; ATTEND Internal Medicine Nephrology